=== PATIENT | female | born 1955 | race African-American/Black ===

== ENCOUNTER 2020-06-01 11:35 | Inpatient (IN) | payer MEDICARE, MEDICAID ==
[~2020-06-01] VITALS: Ht 152.4 cm; Wt 54.1 kg
[2020-06-01] VITALS (9 sets, daily range): BP systolic 121–143; BP diastolic 62–89
[2020-06-01] MEDS ORDERED: LEVOFLOXACIN 500MG PREMIX 100 ML IV ONE (12:00)
[2020-06-01] MEDS ORDERED: SODIUM CHLORIDE 0.9% 1000ML BAG (SEPSIS BOLUS) IV ONE (12:00)
[2020-06-01] MEDS ORDERED: VANCOMYCIN 1 G PREMIX 200 ML IV ONE (12:00)
[2020-06-01 14:50] LABS: BASOPHILS % 0.1 % (0.0-2.0); LYMPHOCYTES % 10.1 % (20.0-50.0); MEAN CORPUSCULAR VOLUME 91.1 fL (81.0-99.0); MEAN PLATELET VOLUME 7.5 fl (7.4-10.4); MONOCYTES % 3.1 % (2.0-8.0); NEUTROPHILS % 86.7 % (40.0-76.0); PLATELET 154 x1000/uL (130-400); RED BLOOD CELL COUNT 2.29 mill/uL (4.2-5.4); RED CELL DISTRIBUTION WIDTH 15.6 % (11.6-14.6)
[2020-06-01 14:52] LABS: HEMATOCRIT. 20.8 % (36.0-48.0); HEMOGLOBIN. 6.9 g/dL (12.0-16.0)
[2020-06-01 14:55] LABS: CHLORIDE 135 mEq/L (98-107)
[2020-06-01 15:06] LABS: INR 1.3
[2020-06-01 15:13] LABS: CLARITY URINE CLEAR (CLEAR); COLOR URINE YELLOW (YELLOW); KETONES URINE 2+ (NEGATIVE); LEUKOCYTE ESTERASE URINE NEGATIVE (NEGATIVE); NITRITE URINE NEGATIVE (NEGATIVE); OCCULT BLOOD URINE NEGATIVE (NEGATIVE); PROTEIN URINE NEGATIVE (NEGATIVE); SPECIFIC GRAVITY URINE 1.015 (1.005-1.030)
[2020-06-01] MEDS ORDERED: DEXTROSE 50% WATER 50ML SYRINGE IV ONE (15:15)
[2020-06-01 15:46] LABS: CHLORIDE 118 mEq/L (98-107)
[2020-06-01] MEDS ORDERED: KCL 10MEQ/50ML PREMIX 50 ML IV ONE (16:15)
[2020-06-01] MEDS ORDERED: ATOR-2 MT (19:54)
[2020-06-01] MEDS ORDERED: CIPR500S3 PO (19:56)
[2020-06-01] MEDS ORDERED: TRAZ-252 MT (19:57)
[2020-06-01] MEDS ORDERED: HYDR25TA MT (19:58)
[2020-06-01] MEDS ORDERED: GUAI400T93 PO (20:08)
[2020-06-01] MEDS ORDERED: sodium bicarbonate PO (20:11)
[2020-06-02] VITALS (11 sets, daily range): BP systolic 103–137; BP diastolic 55–74
[2020-06-02] MEDS ORDERED: CLONIDINE 0.1MG TABLET PO PRN (01:00)
[2020-06-02] MEDS ORDERED: ACETAMINOPHEN 325MG TABLET PO PRN (01:00)
[2020-06-02] MEDS ORDERED: DOCUSATE SODIUM 100MG CAPSULE PO PRN (01:00)
[2020-06-02] MEDS ORDERED: IPRATROPIUM/ALBUTEROL 0.5-3(2.5)MG/3ML NEB NEB PRN (01:00)
[2020-06-02] MEDS ORDERED: LEVOFLOXACIN 500MG PREMIX 100 ML IV SCH (01:00)
[2020-06-02] MEDS ORDERED: ONDANSETRON HCL 4MG/2ML INJ IV PRN (01:00)
[2020-06-02] MEDS ORDERED: SODIUM BICARBONATE 100 MEQ in DEXTROSE 5% WATER 1,000 ML IV ONE (02:00)
[2020-06-02] MEDS ORDERED: AZITHROMYCIN 500 MG in DEXT 5% WATER 250 ML IV SCH (03:00)
[2020-06-02 06:13] LABS: *AMPHETAMINES SCREEN URINE NEGATIVE (NEGATIVE); *BARBITURATES SCREEN URINE NEGATIVE (NEGATIVE); *BENZODIAZEPINES SCREEN URINE NEGATIVE (NEGATIVE); *COCAINE SCREEN URINE NEGATIVE (NEGATIVE); CANNABINOID URINE SCREEN NEGATIVE (NEGATIVE); METHADONE URINE SCREEN NEGATIVE (NEGATIVE); OPIATES URINE SCREEN PRESUMTIVE POSITIVE (NEGATIVE); PHENCYCLIDINE URINE SCREEN NEGATIVE (NEGATIVE)
[2020-06-02 08:16] LABS: BASOPHILS % 0.1 % (0.0-2.0); EOSINOPHILS % 0.4 % (0.0-5.0); HEMATOCRIT. 36.3 % (36.0-48.0); HEMOGLOBIN. 12.4 g/dL (12.0-16.0); LYMPHOCYTES % 19.9 % (20.0-50.0); MEAN CORPUSCULAR HEMOGLOBIN 30.4 pg (28.0-32.0); MEAN CORPUSCULAR VOLUME 89.3 fL (81.0-99.0); NEUTROPHILS % 71.6 % (40.0-76.0); PLATELET 188 x1000/uL (130-400); RED BLOOD CELL COUNT 4.07 mill/uL (4.2-5.4); RED CELL DISTRIBUTION WIDTH 15.1 % (11.6-14.6)
[2020-06-02 08:44] LABS: TOTAL IRON BINDING CAPACITY 140 ug/dL (250-450)
[2020-06-02 08:46] LABS: CREATINE KINASE 36 IU/L (26-192); CREATINE KINASE MB FRACTION 5.1 ng/mL (0.5-3.6)
[2020-06-02 10:30] LABS: CHLORIDE 117 mEq/L (98-107)
[2020-06-02 10:44] LABS: CORTISOL 24.6 ucg/dL
[2020-06-02 10:55] LABS: HEPATITIS B SURFACE ANTIGEN NEGATIVE
[2020-06-02 11:25] LABS: HEPATITIS A AB IGM NEGATIVE (NEGATIVE)
[2020-06-02] MEDS: LEVOFLOXACIN 250MG PREMIX 50 ML IV SCH (11:56)
[2020-06-02 12:00] LABS: BG BASE EXCESS -7.5 mmol/L (-2.0-2.0); BG CARBOXYHEMOGLOBIN 0.4 % (0.5-1.5); BG DEOXYHEMOGLOBIN 2.6 % (0.0-5.0); BG FRACTION INSPIRED OXYGEN 21; BG HCO3 ACT 16.2 mmol/L (22.0-26.0); BG OXYGEN SATURATION 97.4 % (92.0-98.5); BG PCO2 28.2 mmHg (35.0-45.0); BG PH 7.377 (7.350-7.450); BG PO2 107.4 mmHg (75.0-100.0); BG SAMPLE SITE RIGHT RADIAL; BG TOTAL HEMOGLOBIN 12.9 g/dL (12.0-18.0); BG VENT MODE ROOM AIR
[2020-06-02] MEDS ORDERED: POTASSIUM CHLORIDE 20MEQ/PACKET PO SCH (12:30)
[2020-06-02] MEDS ORDERED: CALCIUM GLUCONATE 1,000 MG in DEXT 5% WATER 90 ML IV SCH (14:00)
[2020-06-02 15:59] LABS: BASOPHILS % 0.1 % (0.0-2.0); EOSINOPHILS % 0.4 % (0.0-5.0); LYMPHOCYTES % 15.9 % (20.0-50.0); MEAN CORPUSCULAR HEMOGLOBIN 30.1 pg (28.0-32.0); MEAN CORPUSCULAR VOLUME 87.9 fL (81.0-99.0); MEAN PLATELET VOLUME 7.8 fl (7.4-10.4); MONOCYTES % 7.3 % (2.0-8.0); NEUTROPHILS % 76.3 % (40.0-76.0); PLATELET 202 x1000/uL (130-400); RED BLOOD CELL COUNT 4.32 mill/uL (4.2-5.4); RED CELL DISTRIBUTION WIDTH 14.9 % (11.6-14.6)
[2020-06-02] MEDS ORDERED: POTASSIUM CHLORIDE INJ 40 MEQ in DEXT 5% WATER 250 ML IV SCH (16:00)
[2020-06-02 16:01] LABS: BASOPHILS % 0.1 % (0.0-2.0); EOSINOPHILS % 0.5 % (0.0-5.0); HEMATOCRIT. 37.5 % (36.0-48.0); MEAN CORPUSCULAR HEMOGLOBIN 30.5 pg (28.0-32.0); MEAN CORPUSCULAR VOLUME 87.7 fL (81.0-99.0); MEAN PLATELET VOLUME 7.8 fl (7.4-10.4); MONOCYTES % 6.9 % (2.0-8.0); NEUTROPHILS % 76.5 % (40.0-76.0); PLATELET 200 x1000/uL (130-400); RED BLOOD CELL COUNT 4.27 mill/uL (4.2-5.4); RED CELL DISTRIBUTION WIDTH 15.1 % (11.6-14.6)
[2020-06-02 16:38] LABS: CHLORIDE 119 mEq/L (98-107)
[2020-06-02 16:41] LABS: ETHANOL BLOOD < 10 mg/dL
[2020-06-02 16:49] LABS: BETA HYDROXYBUTYRATE 1.7 mMol/L (0.0-0.3); CREATINE KINASE 41 IU/L (26-192)
[2020-06-02 16:52] LABS: CREATINE KINASE MB FRACTION 4.3 ng/mL (0.5-3.6)
[2020-06-02 17:15] LABS: VITAMIN B12 SERUM 1735 pg/mL (211-911)
[2020-06-02] MEDS ORDERED: LACTULOSE 20G/30ML UDC PO NR (18:45)
[2020-06-02] MEDS ORDERED: POTASSIUM CHLORIDE 20MEQ/PACKET PO NR (21:00)
[2020-06-02] MEDS ORDERED: SODIUM BICARBONATE 100 MEQ in DEXTROSE 5% WATER 1,000 ML IV SCH (21:30)
[2020-06-02 23:32] LABS: BASOPHILS % 0.1 % (0.0-2.0); EOSINOPHILS % 0.9 % (0.0-5.0); HEMATOCRIT. 37.4 % (36.0-48.0); HEMOGLOBIN. 12.8 g/dL (12.0-16.0); LYMPHOCYTES % 20.6 % (20.0-50.0); MEAN CORPUSCULAR HEMOGLOBIN 30.4 pg (28.0-32.0); MEAN PLATELET VOLUME 7.8 fl (7.4-10.4); MONOCYTES % 9.4 % (2.0-8.0); PLATELET 197 x1000/uL (130-400); RED CELL DISTRIBUTION WIDTH 15.1 % (11.6-14.6)
[2020-06-02 23:38] LABS: CHLORIDE 120 mEq/L (98-107)
[2020-06-03] VITALS (11 sets, daily range): BP systolic 105–126; BP diastolic 59–83
[2020-06-03] MEDS ORDERED: MIDAZOLAM HCL 5 MG/5 ML VIAL IV PRN (13:30)
[2020-06-03] MEDS ORDERED: MIDAZOLAM HCL 5 MG/5 ML VIAL ONE (13:35)
[2020-06-03] MEDS ORDERED: FENTANYL CITRATE/PF 50MCG/ML 2ML VIAL ONE (13:35)
[2020-06-03] MEDS: DEXTROSE 5% WATER 1,000 ML IV SCH (17:15)
[2020-06-03] MEDS: LEVOFLOXACIN 250MG PREMIX 50 ML IV SCH (17:15)
[2020-06-03 19:11] LABS: BASOPHILS % 0.4 % (0.0-2.0); EOSINOPHILS % 1.6 % (0.0-5.0); HEMATOCRIT. 36.5 % (36.0-48.0); HEMOGLOBIN. 12.3 g/dL (12.0-16.0); LYMPHOCYTES % 27.9 % (20.0-50.0); MEAN CORPUSCULAR HEMOGLOBIN 29.6 pg (28.0-32.0); MEAN CORPUSCULAR VOLUME 88.1 fL (81.0-99.0); MEAN PLATELET VOLUME 8.2 fl (7.4-10.4); MONOCYTES % 7.6 % (2.0-8.0); NEUTROPHILS % 62.5 % (40.0-76.0); PLATELET 193 x1000/uL (130-400); RED BLOOD CELL COUNT 4.14 mill/uL (4.2-5.4); RED CELL DISTRIBUTION WIDTH 15.6 % (11.6-14.6)
[2020-06-03 19:17] LABS: CHLORIDE 122 mEq/L (98-107)
[2020-06-03 19:20] LABS: PROTHROMBIN TIME 10.7 sec (9.6-11.0)
[2020-06-03 19:24] LABS: LDL CHOLESTEROL 66 mg/dL (5-100)
[2020-06-03 19:26] LABS: HDL CHOLESTEROL 38 mg/dL (40-59)
[2020-06-04] VITALS (13 sets, daily range): BP systolic 107–133; BP diastolic 56–90
[2020-06-04] MEDS: DEXTROSE 5% WATER 1,000 ML IV SCH ×2 (02:35→20:37)
[2020-06-04 07:05] LABS: CHLORIDE 120 mEq/L (98-107)
[2020-06-04 07:09] LABS: BASOPHILS % 0.3 % (0.0-2.0); EOSINOPHILS % 3.1 % (0.0-5.0); HEMATOCRIT. 35.2 % (36.0-48.0); LYMPHOCYTES % 34.6 % (20.0-50.0); MEAN CORPUSCULAR HEMOGLOBIN 30.4 pg (28.0-32.0); MEAN CORPUSCULAR VOLUME 89.3 fL (81.0-99.0); MEAN PLATELET VOLUME 8.2 fl (7.4-10.4); MONOCYTES % 8.9 % (2.0-8.0); NEUTROPHILS % 53.1 % (40.0-76.0); PLATELET 179 x1000/uL (130-400); RED BLOOD CELL COUNT 3.95 mill/uL (4.2-5.4); RED CELL DISTRIBUTION WIDTH 15.1 % (11.6-14.6)
[2020-06-04 09:10] LABS: FOLATE HEMATOCRIT 38.8 % (34.0-46.6)
[2020-06-04] MEDS ORDERED: POTASSIUM CHLORIDE 20MEQ TABLET SR PO NR (09:15)
[2020-06-04] MEDS: LEVOFLOXACIN 250MG PREMIX 50 ML IV SCH (12:02)
[2020-06-04] MEDS ORDERED: LORAZEPAM 2MG/ML CPJ IV PRN (13:00)
[2020-06-04 14:08] LABS: FOLATE RBC 1165 ng/mL (>498)
[2020-06-04] MEDS ORDERED: LORAZEPAM 1MG TABLET PO PRN (16:45)
[2020-06-04] MEDS ORDERED: LORAZEPAM 2MG/ML CPJ IM PRN (17:00)
[2020-06-04] MEDS ORDERED: LORAZEPAM 0.5MG TABLET PO PRN (17:00)
[2020-06-05] VITALS (9 sets, daily range): BP systolic 129–150; BP diastolic 68–95
[2020-06-05 07:07] LABS: BASOPHILS % 0.4 % (0.0-2.0); EOSINOPHILS % 2.9 % (0.0-5.0); HEMATOCRIT. 34.9 % (36.0-48.0); HEMOGLOBIN. 11.9 g/dL (12.0-16.0); LYMPHOCYTES % 36.8 % (20.0-50.0); MEAN CORPUSCULAR HEMOGLOBIN 30.3 pg (28.0-32.0); MEAN CORPUSCULAR VOLUME 89.1 fL (81.0-99.0); MEAN PLATELET VOLUME 8.8 fl (7.4-10.4); MONOCYTES % 10.5 % (2.0-8.0); NEUTROPHILS % 49.4 % (40.0-76.0); PLATELET 193 x1000/uL (130-400); RED BLOOD CELL COUNT 3.92 mill/uL (4.2-5.4); RED CELL DISTRIBUTION WIDTH 15.4 % (11.6-14.6)
[2020-06-05 08:11] LABS: CHLORIDE 118 mEq/L (98-107)
[2020-06-05 08:19] LABS: PHOSPHORUS 1.2 mg/dL (2.5-4.9)
[2020-06-05] MEDS ORDERED: LIDOCAINE HCL 1% 20ML VIAL (Pyxis) INJ ONE ×2 (09:33→10:32)
[2020-06-05] MEDS ORDERED: POTASSIUM CHLORIDE 20MEQ TABLET SR PO SCH (10:15)
[2020-06-05] MEDS ORDERED: SODIUM BICARBONATE 4% (2.4MEQ) 5ML VIAL IV ONE (10:32)
[2020-06-05] MEDS ORDERED: POTASSIUM PHOS,M-BASIC-D-BASIC 20 MMOL in DEXT 5% WATER 243.3333 ML IV ONE (11:00)
[2020-06-05] MEDS: DEXTROSE 5% WATER 1,000 ML IV SCH (11:26)
[2020-06-05] MEDS ORDERED: POTA20TA82 PO (12:07)
[2020-06-06] MEDS ORDERED: LEVOFLOXACIN 250MG TABLET PO SCH (11:00)
== END 2020-06-05 16:30 | disposition home or self-care (01) | DRG 871 ==
LOC: ER 11:35 → 3WST 15:31 → EDBEDREQ 15:33 → EDBEDREQTM 15:33 → ENRESERV 16:03 → 3WST 17:00
PROVIDERS: ADMIT Internal Medicine; ATTEND Internal Medicine
PROC: 30233N1 Transfusion of Nonautologous Red Blood Cells into Peripheral Vein, Percutaneous Approach (ICD-10-PCS; principal; 2020-06-01)
PROC: 0DB68ZX Excision of Stomach, Via Natural or Artificial Opening Endoscopic, Diagnostic (ICD-10-PCS; 2020-06-03)
PROC: 02HV33Z Insertion of Infusion Device into Superior Vena Cava, Percutaneous Approach (ICD-10-PCS; 2020-06-05)
PROC: B518ZZA Fluoroscopy of Superior Vena Cava, Guidance (ICD-10-PCS; 2020-06-05)
PROC: B548ZZA Ultrasonography of Superior Vena Cava, Guidance (ICD-10-PCS; 2020-06-05)
DX: A41.9 Sepsis, unspecified organism (principal); J18.9 Pneumonia, unspecified organism; E43 Unspecified severe protein-calorie malnutrition; J96.00 Acute respiratory failure, unspecified whether with hypoxia or hypercapnia; E87.2 Acidosis; K86.1 Other chronic pancreatitis; E87.0 Hyperosmolality and hypernatremia; E87.1 Hypo-osmolality and hyponatremia; E87.6 Hypokalemia; D64.9 Anemia, unspecified; E78.5 Hyperlipidemia, unspecified; F17.210 Nicotine dependence, cigarettes, uncomplicated; I10 Essential (primary) hypertension; K83.8 Other specified diseases of biliary tract; R74.0 Nonspecific elevation of levels of transaminase and lactic acid dehydrogenase [LDH]; E11.649 Type 2 diabetes mellitus with hypoglycemia without coma; E83.51 Hypocalcemia; D73.5 Infarction of spleen; D35.02 Benign neoplasm of left adrenal gland; D25.9 Leiomyoma of uterus, unspecified; Z87.442 Personal history of urinary calculi; Z86.73 Personal history of transient ischemic attack (TIA), and cerebral infarction without residual deficits; Z90.49 Acquired absence of other specified parts of digestive tract; Z68.23 Body mass index [BMI] 23.0-23.9, adult
CPT/HCPCS: 36415; 36573; 36600; 70551; 71045; 74176; 76700; 76937; 80048; 80053; 80061; 80305; 80320; 81003; 82010; 82088; 82140; 82270; 82330; 82375; 82436; 82533; 82550; 82553; 82607; 82728; 82747; 82805; 82962; 83036; 83540; 83550; 83605; 83735; 83880; 83930; 84100; 84133; 84145; 84244; 84300; 84443; 84484; 85014; 85025; 85044; 85651; 86140; 86705; 86709; 86803; 86850; 86900; 86920; 87340; 88305; 92610; 93005; 93970; 97110; 97116; 97162; 97166; 97530; 97535; 99291; C1725; J0456; J0610; J1956; J2250; J3010; J3370; J3480; J3490; J7030; J7060; J7070; P9016; G0480